=== PATIENT | female | born 1990 | race Caucasian/White ===

== ENCOUNTER 2019-06-07 06:40 | Inpatient (IN) | payer BC, SELFPAY ==
[2019-06-07] VITALS (115 sets, daily range): BP systolic 0–164; BP diastolic 0–89; PULSE 74–105; RESP 16–18; TEMP 36.5–37; O2SAT 92–100; BMI 31.8
[2019-06-07 07:58] LABS: Basophils % 0.1 %; Eosinophils # 0.1 10^3/uL (0.0-0.8); Eosinophils % 1.4 %; Hematocrit 39.8 % (37.0-47.0); Hemoglobin 12.9 g/dL (11.5-15.3); Lymphocytes # 2.4 10^3/uL (0.8-4.8); Lymphocytes % 30.3 %; Mean Corpuscular HGB Conc 32.4 g/dL (30.0-36.0); Mean Corpuscular Hemoglobin 26.3 pg (28.0-34.0); Mean Corpuscular Volume 81.1 fL (81-99); Mean Platelet Volume 8.8 fL (7.4-10.4); Monocytes # 0.6 10^3/uL (0.2-0.9); Monocytes % 7.1 %; Neutrophils # 4.8 10^3/uL (1.8-7.7); Neutrophils % 60.5 %; Nucleated Red Blood Cells % 0 %; Platelet Count 263 10^3/cmm (130-400); Red Blood Count 4.91 10^6/uL (4.1-5.3)
[2019-06-07] MEDS: oxytocin 30 UNIT/500 ML BAG IV (07:59)
[2019-06-07] MEDS: dextrose 5%-lactated ringers 1,000 ML 125 ML IV (08:00)
--- NOTE | 2019-06-07 08:11 | P.HP_ITS ---
Providers/Chief Complaint Admitting Physician: Yang Amador MD Primary Care Provider: Yang Amador MD Chief Complaint: Induction History of Present Illness Joleen Smith is a 29 year old at 41.0 weeks by LMP consistent with 11-week ultrasound. Her is complicated by prior oophorectomy for dermoid cyst. The patient presented to labor and delivery triage for a scheduled induction of labor for postdates. She currently denies any contractions, leakage of fluid, vaginal bleeding, chest pains, shortness of breath. She has had a mild cold that is starting to improve. She denies any active fevers or significant cough. PFSH Acute PFSH: Medical History (Updated 06/07/19 @ 08:14 by Yang Amador MD) Family history of hypertension Surgical History (Updated 06/07/19 @ 08:14 by Yang Amador MD) History of right salpingo-oophorectomy Family History (Updated 06/07/19 @ 08:14 by Yang Amador MD) Father Hypertension Vitals/I&O/Wt Last Vital Signs Pulse 84 06/07/19 08:08 BP 121/78 06/07/19 08:08 Physical Exam Narrative: EXAM NARRATIVE: General: Alert and oriented x3 Eyes: Pupils equal round and reactive to light and accommodation Mouth: Mucous membranes moist, pharynx non-erythematous Cardiac: Regular rate and rhythm without murmurs Lungs: Clear to auscultation bilaterally without wheezes, crackles or rhonchi Abdomen: Soft, non-tender, fundus consistent with gestational age, vertex presentation Extremities: Trace edema in the bilateral lower extremities Data : 06/07/19 07:40 A&P Additional A&P Information The patient is doing well at this time. heart tones are in the mid 140s with moderate variability and good accelerations. There is a category 1 heart tone tracing. The patient has some intermittent irritability, without regular contractions. Her initial exam is 3/70/-2/soft/anterior. We will start her on IV Pitocin for induction of labor. All questions were answered. Proceed with induction of labor secondary to postdates. Attestations Medical Necessity Statement*: The patient will be here for greater than 2 midnights due to routine intrapartum and management of labor and delivery. Coding Level of Care Code Acute Fruit Or Nut Crops Farm Manager for Austing Chantell
[2019-06-07] MEDS: lactated ringers 1,000 ML 999 ML IV ×2 (11:31→12:35)
--- NOTE | 2019-06-07 13:11 | P.ANES_ITS ---
Anesthesia Procedures Procedure/Date: 06/07/19 Epidural: Time Out Performed: Yes Consents Signed: Procedure Consent Consent: from patient, risks and benefits reviewed and patient agrees to proceed Lumbar Level: L3-L4 Epidural position: sitting Epidural procedure: sterile prep of area, 1% lidocaine to numb the area (5), 18 g needle, negative f or paresthesia passed, neg for paresthesia, test dose given, 1.5% xylocaine 1:200k epi (5), 0.2% Ropivacaine bolus ml (8), placed PCEA (5cc q10min x 3), no systemic response, sterile dressing applied, L.U.D. no apparent complications and 0.2% Ropiavacaine @ mls/hr (11) Additional Comments: patient previously seen in preop. Reviewed preop by Dr. Newsome and pt evaluated. No changes in health status. NPO since 0500. . epidural placed x 1 attempt and tolerated well. catheter 5cm in space. bolused over 7min and VSS throughout, last BP 138/58. Pain much improved.
--- NOTE | 2019-06-07 18:26 | P.PCNOB_ITS ---
Delivery Note: Date of delivery: June 07, 2019 Pre-delivery diagnoses: 1. Intrauterine at 41.0 weeks gestation 2. Prior oophorectomy for dermoid cyst Joleen Smith is a 29 year old G1 now P1 status post spontaneous vaginal delivery at 41.0 weeks by LMP consistent with 11-week ultrasound. Her was complicated by prior oophorectomy for dermoid cyst. Post-delivery diagnoses: 1. Intrauterine status post spontaneous vaginal delivery at 41.0 weeks gestation 2. Prior oophorectomy for dermoid cyst 3. Second-degree vaginal laceration with repair 4. Delivery of healthy infant female weighing 9 pounds 5 ounces with Apgars of 8 and 9 Procedure: Spontaneous vaginal delivery Op report anesthesia: Epidural Delivering Physician: Yang Amador MD Estimated blood loss (mL): 150 Findings: 1. Delivery of healthy infant female weighing 9 pounds 5 ounces with Apgars of 8 9 2. Second-degree midline perineal vaginal laceration with repair 3. Intact placenta with peripheral umbilical cord insertion site Pre-Delivery Course: The patient was brought in for induction of labor secondary to postdates on the morning of 06/07/2019. She was 3 cm dilated upon admission. She was started on IV Pitocin and made good change. The patient had spontaneous rupture of membranes at 11:15 AM. The fluid was noted to be clear. The patient continued to make change and received an epidural. This worked very well for her. The patient was complete at 1600 on 06/07/2019. Delivery: The patient began pushing at 1634 on 06/07/2019. The patient pushed well. The delivered in the OA position at 1740 on 06/07/2019. The left shoulder was the anterior shoulder and it delivered with downward pressure. The rest of the infant delivered without complication. There was no nuchal cord. There was terminal meconium. The infant's mouth and nose were bulb suctioned by myself. The infant had a weak cry upon delivery. The was placed on the mother's chest where the nurses were waiting to care for her. The cord was clamped by myself after approximately 1 minute. The cord was cut by the infant's father. The cord blood was drained and traction was placed on the cord. The placenta delivered at 1743 without complication. The placenta was noted to be intact with a peripheral insertion site of the umbilical cord. The uterus was massaged and noted to be firm and midline. The cervix was inspected and there were no lacerations noted. The vaginal wall was inspected and a se cond-degree vaginal laceration was noted in the midline perineal region. This extended near the anal sphincter but did not disrupt it. The laceration was repaired using 3-0 Vicryl in a running fashion. No lidocaine was necessary as epidural was given adequate anesthesia. There was a small abrasion in the right upper vaginal wall and the left lower vaginal wall that did not need repair. The rectum was inspected by myself and no sutures were noted in the rectum. The anal sphincter had poor tone in general that I feel was secondary to a strong epidural. We will certainly watch for any signs of anal sphincter weakness. Currently both the mother and are doing well. Coding Level of Care Code Acute Grocery Stock Clerk for Arleth Abdul
[2019-06-08 02:00] VITALS: BP 114/73; PULSE 64; RESP 16; TEMP 36.4
[2019-06-08 04:44] VITALS: BP 112/72
[2019-06-08 08:00] LABS: Hematocrit 34.4 % (37.0-47.0); Mean Corpuscular Hemoglobin 27.4 pg (28.0-34.0); Mean Corpuscular Volume 85.6 fL (81-99); Mean Platelet Volume 8.8 fL (7.4-10.4); Platelet Count 226 10^3/cmm (130-400); Red Blood Count 4.02 10^6/uL (4.1-5.3); White Blood Count 11.3 10^3/uL (4.0-10.0)
--- NOTE | 2019-06-08 08:43 | P.PN_ITS ---
Subjective Subjective: Interval history: The patient is doing well today. Her bleeding is decreasing well. Her pain is under good control. She is ambulating, voiding, passing gas and tolerating food by mouth. She is able to control flatulence. Vitals/I&O/Wt Last Vital Signs Temp 97.6 F 06/08/19 02:00 Pulse 64 06/08/19 02:00 Resp 16 06/08/19 02:00 BP 112/72 06/08/19 04:44 Pulse Ox 98 06/07/19 13:35 06/07/19 06/08/19 06/08/19 22:59 06:59 14:59 Intake Total 214.8 / 1435.233 250 / 1685.233 Output Total 200 / 200 400 / 600 650 / 650 Balance 14.8 / 1235.233 -150 / 1085.233 -650 / -650 Weight last 48 hrs Weight 191 lb Physical Exam Narrative: EXAM NARRATIVE: General: Alert and oriented x3 Cardiac: Regular rate and rhythm without murmurs Lungs: Clear to auscultation bilaterally without wheezes, crackles or rhonchi Abdomen: Soft, mild tenderness, fundus is firm and below the umbilicus. Extremities: Trace edema in the bilateral lower extremities Urinary Catheter Management^: Latif: Cath Placed During This Visit: yes, but has since been removed by the nurse Reason for Continuing Indwelling Catheter: Not indwelling catheter Urinary Catheter Date of Insertion: 06/07/19 Urinary Catheter Time of Insertion: 13:30 Date Urinary Catheter Removed: 06/07/19 Time Urinary Catheter Discontinued: 16:30 Data : 06/08/19 07:43 A&P Additional A&P Information The patient is doing well at this time. She is showing no signs of complications. We will continue with routine care. Plan for discharge home tomorrow if she continues to do well. Attestations Medical Necessity Statement*: The patient continues need inpatient care as she recovers after a vaginal delivery. Plan for discharge home tomorrow. Coding Level of Care Code Acute Investigation Specialist for Arleth Abdul
[2019-06-08] MEDS: ferrous sulfate EC 325 mg Tablet PO (09:11)
[2019-06-08] MEDS: prenatal vitamin Capsule 1 CAP PO (09:11)
[2019-06-08] MEDS: docusate sodium 100 mg Capsule PO ×2 (09:13→17:12)
[2019-06-08 09:30] VITALS: BP 110/73; PULSE 78; RESP 16; TEMP 36.3; O2SAT 98
[2019-06-08 16:23] VITALS: BP 111/75; PULSE 79; RESP 16; TEMP 36.3; O2SAT 96
[2019-06-09 06:45] VITALS: BP 114/70; PULSE 62; RESP 18; TEMP 36.8
--- NOTE | 2019-06-09 08:28 | P.DS_ITS ---
Discharge Providers Date of Admission: 06/07/19 06:40 Date of Discharge: June 09, 2019 Attending Provider at Admission: Yang Amador MD Attending Provider at Discharge: Yang Amador MD Primary Care Provider: Yang Amador MD Diagnoses at Discharge Discharge Diagnosis (1) Intrauterine : Status: Acute Reason for Visit Reason for Visit: Reason For Visit: Induction Hospital Course Hospital Course: The patient was brought in for induction of labor secondary to postdates on the morning of 06/07/2019. She was 3 cm dilated upon admission. She was started on IV Pitocin and made good change. The patient had spontaneous rupture of membranes at 11:15 AM. The fluid was noted to be clear. The patient continued to make change and received an epidural. This worked very well for her. The patient was complete at 1600 on 06/07/2019. Delivery: The patient began pushing at 1634 on 06/07/2019. The patient pushed well. The infant delivered in the OA position at 1740 on 06/07/2019. The left shoulder was the anterior shoulder and it delivered with downward pressure. The rest of the delivered without complication. There was no nuchal cord. There was terminal meconium. The 's mouth and nose were bulb suctioned by myself. The infant had a weak cry upon delivery. The was placed on the mother's chest where the nurses were waiting to care for her. The cord was clamped by myself after approximately 1 minute. The cord was cut by the 's father. The cord blood was drained and traction was placed on the cord. The placenta delivered at 1743 without complication. The placenta was noted to be intact with a peripheral insertion site of the umbilical cord. The uterus was massaged and noted to be firm and midline. The cervix was inspected and there were no lacerations noted. The vaginal wall was inspected and a second-degree vaginal laceration was noted in the midline perineal region. This extended near the anal sphincter but did not disrupt it. The laceration was repaired using 3-0 Vicryl in a running fashion. No lidocaine was necessary as epidural was given adequate anesthesia. There was a small abrasion in the right upper vaginal wall and the left lower vaginal wall that did not need repair. The rectum was inspected by myself and no sutures were noted in the rectum. The anal sphincter had poor tone in general that I feel was secondary to a strong epidural. We will certainly watch for any signs of anal sphincter weakness. Currently both the mother and infant are doing well. course: The patient is done well without any signs of complications. Her bleeding is decreasing well. She is ambulating, voiding, passing gas and tolerating food by mouth. The patient is able to control flatulence well. The patient's pain is under good control with current medications. At this time the patient is doing well and wishes to be discharged home. All questions were answered. Routine discharge instructions were given. Physical Exam Narrative: EXAM NARRATIVE: General: Alert and oriented x3 Cardiac: Regular rate and rhythm without murmurs Lungs: Clear to auscultation bilaterally without wheezes, crackles or rhonchi Abdomen: Soft, mild tenderness, fundus is firm and below the umbilicus. Extremities: Trace edema in the bilateral lower extremities Urinary Catheter Management^: Latif: Cath Placed During This Visit: yes, but has since been removed by the nurse Reason for Continuing Indwelling Catheter: Not indwelling catheter Urinary Catheter Date of Insertion: 06/07/19 Urinary Catheter Time of Insertion: 13:30 Date Urinary Catheter Removed: 06/07/19 Time Urinary Catheter Discontinued: 16:30 Discharge Data Vitals: Last Vital Signs Temp 98.2 F 06/09/19 06:45 Pulse 62 06/09/19 06:45 Resp 18 06/09/19 06:45 BP 114/70 06/09/19 06:45 Pulse Ox 96 06/08/19 16:23 Discharge Plan Discharge Patient Disposition: Home, Self-Care Condition: Good Prescriptions: New hydrocodone-acetaminophen 5-325 mg Tablet 1 tab PO Q6H PRN (Reason: Moderate To Severe Pain) Qty: 15 RF: 0 ibuprofen 800 mg Tablet 800 mg PO TID Qty: 60 RF: 0 Continued 28-800 mg-mcg Tablet 1 tab PO DAILY RF: 0 Iron (ferrous sulfate) 325 mg (65 mg iron) Tablet 325 mg PO DAILY RF: 0 Discharge Orders: Discharge Order (Routine); Ordered 06/09/19 Ordered By: Yang Amador Referrals: Yang Amador MD [Primary Care Provider] - 6 Weeks Discharge Diet: Regular Discharge Activity: Increase activity as tolerated Activity Restrictions/Additional Instructions: If you have any concerns prior to your appointment, please call [facility] for sooner appointment. Nothing per vagina for 6 weeks. Discharge Attestations Time Spent in Discharge Care*: less than 30 min Quality Metrics Clinical Quality Measures During this hospital stay, did patient experience: None Coding Level of Care Code Acute Windows And Doors Installer for [employer] Diagnoses Intrauterine Z34.90
== END 2019-06-09 10:48 | disposition home or self-care (01) | DRG 807 ==
PROVIDERS: Admitting Provider Family Medicine; Family Provider Family Medicine; PCP Family Medicine; Visit Provider Family Medicine
DX: O48.0 Post-term pregnancy (principal); Z37.0 Single live birth; Z3A.41 41 weeks gestation of pregnancy; O70.1 Second degree perineal laceration during delivery
CPT/HCPCS: 12345; 36415; 51702; 59409; 85025; 85027; J2795

== ENCOUNTER 2020-10-18 11:01 | Outpatient (CLI) | payer OTHER, SELFPAY ==
--- NOTE | 2020-10-18 11:11 | US_ITS ---
WS: [id number] EARLY OBSTETRICAL ULTRASOUND (<14 WEEKS). HISTORY: SUPERVISION OF NORMAL ,MULTIPAROUS COMPARISON: None available. Single intrauterine gestational sac is identified. Cardiac activity at 171 BPM. [place]-rump length ophelia sures 6.0 cm which corresponds to a gestation of 12w3d. Normal-appearing yolk sac and amnion demonstr ated. No subchorionic hemorrhage. No free fluid. Normal size ovaries with no mass. Cervix is closed. No free fluid. US/US OB <= 14 weeks fetus [id number] IMPRESSION: 1. Single intrauterine gestation of 12 weeks 3 days with an EDC of 04/29/2021. 2. Normal cardiac activity.
== END 2020-10-18 11:02 | disposition home or self-care (01) ==
LOC: US 11:06
PROVIDERS: PCP Family Medicine; Visit Provider Family Medicine
DX: Z34.81 Encounter for supervision of other normal pregnancy, first trimester; Z3A.12 12 weeks gestation of pregnancy
CPT/HCPCS: 76801

== ENCOUNTER 2020-12-15 08:07 | Outpatient (CLI) | payer OTHER, SELFPAY ==
--- NOTE | 2020-12-15 08:12 | US_ITS ---
WS: [id number] OBSTETRICAL ULTRASOUND COMPLETE HISTORY: SUPERVISION NORMAL COMPARISON: 10/18/2020 Single intrauterine gestation in Cephalic presentation. Cervix is Closed and normal length. Cervical length is 4.2 cm. Normal amount of amniotic fluid surrounds the fetus. Placenta: Posterior, no previa or abruption. Placenta grade 0 Heart: 167 BPM. Four chambers are identified. Also tracts are not adequately evaluated. Anatomy: Intracranial structures and spine are normal. kidneys, stomach and urinary bladd er are unremarkable. Abdominal wall, three-vessel cord and cord insertion site are normal. 4 extremities are present. profile: Unremarkable. Gender: Male. measurements: BPD = 4.7 cm = 20w1d HC = 17.9 cm = 20w3d AC = 15.2 cm = 20w3d FL = 3.5 cm = 20w6d EFW: 364 g. Biometry is internally concordant. AGA by ultrasound: 20w3d JUSTIN by ultrasound: 05/01/2021 US/US OB >= 14 weeks fetus [id number] IMPRESSION: 1. Single intrauterine gestation of 20w3d with an JUSTIN of 05/01/2021. Appropria te growth since the first trimester ultrasound. 2. Unremarkable screening survey of anatomy.
== END 2020-12-15 08:08 | disposition home or self-care (01) ==
PROVIDERS: PCP Family Medicine; Visit Provider Family Medicine
DX: Z34.82 Encounter for supervision of other normal pregnancy, second trimester; Z3A.20 20 weeks gestation of pregnancy
CPT/HCPCS: 76805

== ENCOUNTER 2021-04-30 07:20 | Outpatient (CLI) | payer OTHER, SELFPAY ==
[2021-04-30 07:20] VITALS: BMI 31.9
--- NOTE | 2021-04-30 09:09 | PM.HP ---
Providers/Chief Complaint Primary Care Provider: Yang Amador MD Chief Complaint: induction History of Present Illness Joleen Smith is a 31 year old G2, P1 40.1 weeks gestation by 12-week ultrasound inconsistent with LMP. Her is complicated by prior oophorectomy for dermoid cyst, history of cold sores, mild anemia, history of infant weighing 9 pounds 5 ounces. The patient presents to labor and delivery triage for a scheduled induction of labor secondary to postdates. The patient currently feels well. She denies any chest pains, shortness of breath, nausea, vomiting, diarrhea, constipation, fevers, leakage of fluid, vaginal bleeding. Medications/Allergies Home Medications Medication Instructions Recorded Confirmed Last Taken Type Iron (ferrous sulfate) 325 mg PO DAILY 06/07/19 06/07/19 06/06/19 09:30 History 1 tab PO DAILY 06/07/19 06/07/19 06/06/19 09:30 History hydrocodone-acetaminophen 1 tab PO Q6H PRN #15 tab 06/09/19 Unknown Rx ibuprofen 800 mg PO TID #60 tab 06/09/19 Unknown Rx Allergies Allergy/AdvReac Type Severity Reaction Status Date / Time No Known Allergies Allergy Verified 06/07/19 10:36 PFSH Acute PFSH: Medical History (Updated 04/30/21 @ 09:12 by Yang Amador MD) Family history of hypertension Surgical History (Updated 04/30/21 @ 09:13 by Yang Amador MD) History of right oophorectomy Dermoid tumor History of right salpingo-oophorectomy Family History (Updated 06/07/19 @ 08:14 by Yang Amador MD) Father Hypertension Social History (Updated 04/30/21 @ 09:14 by Yang Amador MD) Smoking and tobacco status: never smoked Alcohol intake: never Substance/Drug Use: never Marital status: Number of children: 1 Female Reproductive History: Date of last menstrual period: 08/24/18 Physical Exam Narrative: EXAM NARRATIVE: General: Alert and oriented x3 Eyes: Pupils equal round and reactive to light and accommodation Mouth: Mucous membranes moist, pharynx non-erythematous Cardiac: Regular rate and rhythm without murmurs Lungs: Clear to auscultation bilaterally without wheezes, crackles or rhonchi Abdomen: Soft, non-tender, fundus consistent with gestational age Extremities: Trace edema in the bilateral lower extremities A&P Assessment and plan (1) Intrauterine : Status: Acute Additional A&P Information The patient is doing well at this time. heart tones show a category 1 tracing. The patient is not having any consistent contractions. We will plan to start IV Pitocin for induction of labor as she is 3 cm dilated. She is GBS negative. She is COVID-negative. All questions were answered. The patient is in agreement with the current plan of care. Attestations Medical Necessity Statement*: The patient will be here for greater than 2 midnights due to routine intrapartum and management of labor and delivery. Coding Level of Care Code Acute Cash Management Specialist for Arleth Abdul Diagnoses Intrauterine Z34.90
== END 2021-04-30 15:55 | disposition home or self-care (01) ==
LOC: OPOB 07:26 → OBGYN 07:27
PROVIDERS: PCP Family Medicine; Visit Provider Family Medicine
DX: O61.9 Failed induction of labor, unspecified (principal); Z3A.00 Weeks of gestation of pregnancy not specified
CPT/HCPCS: 59025; 99211

== ENCOUNTER 2021-05-01 16:12 | Inpatient (IN) | payer OTHER, SELFPAY ==
[2021-05-01] VITALS (43 sets, daily range): BP systolic 90–123; BP diastolic 53–73; PULSE 75–133; RESP 17; TEMP 36.7; O2SAT 93–100; BMI 31.9
[2021-05-01] MEDS: dextrose 5%-lactated ringers 1,000 ML 125 ML IV (17:21)
[2021-05-01] MEDS: oxytocin 30 UNIT/500 ML BAG 4 UNIT IV (17:22)
[2021-05-01 17:37] LABS: Basophils % 0.1 %; Eosinophils % 0.1 %; Hematocrit 40.2 % (37.0-47.0); Hemoglobin 13.2 g/dL (11.5-15.3); Lymphocytes # 0.5 10^3/uL (0.8-4.8); Lymphocytes % 7.4 %; Mean Corpuscular HGB Conc 32.8 g/dL (30.0-36.0); Mean Corpuscular Hemoglobin 28.1 pg (28.0-34.0); Mean Corpuscular Volume 85.7 fl (81-99); Mean Platelet Volume 9.4 fL (7.4-10.4); Monocytes # 0.7 10^3/uL (0.2-0.9); Monocytes % 10.2 %; Neutrophils # 5.51 10^3/uL (1.8-7.7); Neutrophils % 81.5 %; Nucleated Red Blood Cells % 0 %; Platelet Count 211 10^3/cmm (130-400); Red Blood Count 4.69 10^6/uL (4.1-5.3); Red Cell Distribution Width 12.7 % (12.1-15.1); White Blood Count 6.8 10^3/uL (4.0-10.0)
[2021-05-01] MEDS: lactated ringers 1,000 ML 999 ML IV (19:25)
--- NOTE | 2021-05-01 20:22 | ANES.PREANE2 ---
Pre-Anesthetic Assessment Pre-Anesthetic Assessment: Height/Weight: Height 1.63 m Weight 84.368 kg Temp Pulse Resp BP 98.1 F 105 H 17 105/55 05/01/21 16:17 05/01/21 20:06 05/01/21 16:43 05/01/21 20:06 Preop Diagnosis: Proposed Procedure: epidural Familial anesthetic complications: none Was Beta Nazario taken within 24 hours: N/A Was Clonidine taken within 24 hours: N/A Social: Social History: No alcohol and No tobacco Exam: Pre-Anes Outpt Exam: alert, oriented x 3, clear to auscultation bilaterally and regular rate & rhythm Airway: Submandibular: WNL Cervical ROM: WNL MP: 2 Dentition: Full Pulmonary: Pulmonary: None reported CV/HEM: CV/HEM: None reported : : None reported Hepatic: Hepatic: None reported GI: GI: GERD Metabolic: Metabolic: None reported Musc/skel: Musc/skel: None reported Neuropsych: Neuropsych: None reported Anesthetic Plan: ASA status: 2 Anesthesia: Regional (specify below) Risk of > 500 ml blood loss (7ml/kg in children): No Medications/Allergies Current Medications: Current Medications Generic Name Dose Route Start Last Admin Trade Name Freq PRN Reason Stop Dose Admin Oxytocin 30 unit in 500 ml s @ 4 mls/hr 05/01/21 16:45 05/01/21 18:00 Pitocin IV 8 milliunit/min .Q24H GLENIS 8 mls/hr Titration Protocol 4 MILLIUNIT/MIN Dextrose/Lactated Ringer's 1,000 mls @ 125 m ls/hr 05/01/21 16:45 05/01/21 17:21 Dextrose 5%-Lact ated Ringers IV 125 mls/hr .Q8H GLENIS Administration Lactated Ringer's 1,000 mls @ 999 m ls/hr 05/01/21 19:18 05/01/21 19:25 Lactated Ringers IV 999 mls/hr .Q1H1M PRN Administration See label comment s PFSH Anesthesia PFSH: Medical History (Updated 04/30/21 @ 09:12 by Yang Amador MD) Family history of hypertension Surgical History (Updated 04/30/21 @ 09:13 by Yang Amador MD) History of right oophorectomy Dermoid tumor History of right salpingo-oophorectomy Family History (Updated 06/07/19 @ 08:14 by Yang Amador MD) Father Hypertension Social History (Updated 04/30/21 @ 09:14 by Yang Amador MD) Smoking and tobacco status: never smoked Alcohol intake: never Marital status: Number of children: 1 Female Reproductive History: Date of last menstrual period: 08/24/18 : 2 Data Anesthesia CBC & Chem 7: 05/01/21 17:00 Other Labs: Laboratory Results - last 48 hr 05/01/21 17:00 WBC 6.8 RBC 4.69 Hgb 13.2 Hct 40.2 MCV 85.7 MCH 28.1 MCHC 32.8 RDW 12.7 Plt Count 211 MPV 9.4 Neut % (Auto) 81.5 Lymph % (Auto) 7.4 [place] % (Auto) 10.2 Eos % (Auto) 0.1 Baso % (Auto) 0.1 Neut # (Auto) 5.51 Lymph # (Auto) 0.5 L [place] # (Auto) 0.7 Eos # (Auto) 0.0 Baso # (Auto) 0.0 Nucleated RBC % (auto) 0 Nucleated RBCs # 0.0 Cardiac Studies: No Data to Display
--- NOTE | 2021-05-01 20:56 | ANES.PROC ---
Anesthesia Procedures Procedure/Date: 05/01/21 epidural Procedure Narrative: epidural complete, bolus given, epidural pump initiated with BULK TRUCK DRIVER education given, vitals taken during procedure using OBIX system and satisfactory throughout, patient admits to decrease pain, report of procedure to OB RN Epidural: Time Out Performed: Yes Consents Signed: Procedure Consent Consent: requested by attending/covering physician, from patient, risks and benefits reviewed and patient agrees to proceed Lumbar Level: L3-L4 Epidural position: sitting Epidural procedure: sterile prep of area, 1% lidocaine to numb the area (3 mL), 18 g needle, negative for paresthesia passed, neg for paresthesia, test dose given, 1.5% xylocaine 1:200k epi (5 mL), 0.2% Ropivacaine bolus ml (5 mL), placed PCEA, no systemic response, sterile dressing applied, L.U.D. no apparent complications and 0.2% Ropiavacaine @ mls/hr (13 mL/hr)
--- NOTE | 2021-05-01 21:00 | P.HP_ITS ---
Providers/Chief Complaint Admitting Physician: Yang Amador MD Primary Care Provider: Yang Amador MD Chief Complaint: induction History of Present Illness Joleen Smith is a 31 year old at 40.2 weeks gestation by 12-week ultrasound inconsistent with LMP. Her is complicated by prior oophorectomy for dermoid cyst, history of cold sores, mild anemia, history of weighing 9 pounds 5 ounces. The patient presents to labor and delivery triage for a scheduled induction of labor secondary to postdates. She had been scheduled for 04/30/2021, however due to patient volume, her induction was delayed. Instead of starting the induction in the evening of 04/30/2021, she decided to wait until 04/30/2021 for induction. The patient currently feels well. She denies any chest pains, shortness of breath, nausea, vomiting, diarrhea, constipation, fevers, leakage of fluid, vaginal bleeding. Medications/Allergies Home Medications Medication Instructions Recorded Confirmed Last Taken Type 1 tab PO DAILY 06/07/19 05/01/21 06/06/19 09:30 History Allergies Allergy/AdvReac Type Severity Reaction Status Date / Time No Known Allergies Allergy Verified 06/07/19 10:36 PFSH Acute PFSH: Medical History Family history of hypertension Surgical History History of right oophorectomy Dermoid tumor History of right salpingo-oophorectomy Family History (Updated 06/07/19 @ 08:14 by Yang Amador MD) Father Hypertension Social History Smoking and tobacco status: never smoked Alcohol intake: never Marital status: Number of children: 1 Female Reproductive History: Date of last menstrual period: 08/24/18 Grav julianna: 2 Vitals/I&O/Wt Last Vital Signs Temp 98.1 F 05/01/21 16:17 Pulse 118 H 05/01/21 20:57 Resp 17 05/01/21 16:43 BP 102/57 05/01/21 20:57 Pulse Ox 100 05/01/21 20:57 05/01/21 05/01/21 05/01/21 06:59 14:59 22:59 Intake Total 2.533 / 2.533 Balance 2.533 / 2.533 Weight last 48 hrs Weight 186 lb Physical Exam Narrative: EXAM NARRATIVE: General: Alert and oriented x3 Eyes: Pupils equal round and reactive to light and accommodation Mouth: Mucous membranes moist, pharynx non-erythematous Cardiac: Regular rate and rhythm without murmurs Lungs: Clear to auscultation bilaterally without wheezes, crackles or rhonchi Abdomen: Soft, non-tender, fundus consistent with gestational age Extremities: Trace edema in the bilateral lower extremities Data : 05/01/21 17:00 A&P Additional A&P Information Intrauterine : Status: Acute Additional A&P Information The patient is doing well at this time. heart tones show a category 1 tracing. The patient is not having any consistent contractions. We will plan to start IV Pitocin for induction of labor as she is 3 cm dilated. She is GBS negative. She is COVID-negative. All questions were answered. The patient is in agreement with the current plan of care. Attestations Medical Necessity Statement*: The patient will be here for greater than 2 midnights due to routine intrapartum and management of labor and delivery. Coding Level of Care Code Acute Solvent Mixer for Arleth Abdul
--- NOTE | 2021-05-01 22:17 | P.PCNOB_ITS ---
Delivery Note: Date of delivery: May 01, 2021 Pre-delivery diagnoses: 1. Intrauterine at 40.2 weeks gestation 2. Mild anemia 3. History of infant weighing 9 pounds 5 ounces Post-delivery diagnoses: 1. Intrauterine status post spontaneous vaginal delivery at 40.2 weeks gestation 2. Mild anemia 3. Delivery of healthy infant male weighing 8 pounds 5 ounces with Apgars of 9 and 9 Procedure: Spontaneous vaginal delivery Op report anesthesia: Epidural Delivering Physician: Yang Amador MD Estimated blood loss (mL): 100 Findings: Joleen Smith is a 31 year old G2 now P2 status post spontaneous vaginal delivery at 40.2 weeks gestation by 12-week ultrasound inconsistent with LMP. Her was complicated by prior oophorectomy for dermoid cyst, history of cold sores, mild anemia, history of infant weighing 9 pounds 5 ounces. Pre-Delivery Course: The patient presented to labor and delivery for a scheduled induction on the afternoon of 05/01/2021. IV Pitocin was started at approximately 5:30 PM on 05/01/2021. The patient was 3 cm dilated upon admission. The patient began having regular contractions and made steady contreras ge. She received a laboring epidural that provided good anesthesia. The patient was noted to be 7 to 8 cm dilation with a bulging bag of fluid, so AROM was performed at 2111 on 05/01/2021. Meconium stained fluid was noted. The patient made quick change and was complete by 2129 on 05/01/2021. Delivery: The patient began pushing at 2137 on 05/01/2021. The patient pushed well and the delivered in the OA position at 2139 on 05/01/2021. The right shoulder was the anterior shoulder and it delivered with downward pressure. The left shoulder delivered with upward pressure. The rest of the delivered with ease. There was no nuchal cord. The was crying immediately upon delivery. The infant's mouth and nose were bulb suctioned by myself. The infant was placed on the mother's chest where the nurses were awaiting to care for him. The cord was clamped by myself after approximately 1 minute and cut by the 's father. Cord blood was obtained. The cord was then drained of blood and traction was placed on the umbilical cord. The uterus was massaged and the placenta delivered at 2143 on 05/01/2021 without complica tion. The placenta was noted to be intact with a central umbilical cord insertion site. The uterus was massaged and the patient's bleeding decreased quickly. The cervix was inspected and no lacerations were noted. The vaginal wall was inspected and a second-degree perineal laceration was noted. This did not extend to the rectum. Adequate anesthesia was noted with the patient's epidural. 3-0 Vicryl was used to repair the laceration in a running fashion. A rectal exam was done and no sutures were noted in the rectum. The patient tolerated the procedure well. Currently both the mother and infant are doing well. Coding Level of Care Code Acute Commercial Collections Specialist for Arleth Abdul
[2021-05-02] VITALS (10 sets, daily range): BP systolic 96–116; BP diastolic 57–71; PULSE 65–85; RESP 16; TEMP 36.7–37.1; O2SAT 95–98
--- NOTE | 2021-05-02 07:18 | ANE.PACU2 ---
Inpatient post-anesthesia follow up: Airway intact: Yes Vital signs: Temperature 98.5 F Pulse Rate 76 Respiratory Rate 17 Blood Pressure 103/60 Pulse Oximetry 98 Oxygen Delivery Me thod Room Air Oxygen Flow Rate Fraction of Inspir ed Oxygen Hydration adequate: Yes Nausea and vomiting: No Pain level: 2 Mental status: Baseline
[2021-05-02 10:31] LABS: Hemoglobin 11.1 g/dL (11.5-15.3); Mean Corpuscular HGB Conc 32.6 g/dL (30.0-36.0); Mean Corpuscular Hemoglobin 28.1 pg (28.0-34.0); Mean Corpuscular Volume 86.1 fl (81-99); Mean Platelet Volume 8.9 fL (7.4-10.4); Platelet Count 184 10^3/cmm (130-400); Red Blood Count 3.95 10^6/uL (4.1-5.3); Red Cell Distribution Width 12.7 % (12.1-15.1); White Blood Count 6.2 10^3/uL (4.0-10.0)
[2021-05-02] MEDS: docusate sodium 100 mg Capsule PO ×2 (10:46→17:40)
[2021-05-02] MEDS: ibuprofen 800 mg tablet PO ×3 (10:47→21:08)
[2021-05-02] MEDS: prenatal vitamin Capsule 1 CAP PO (10:47)
--- NOTE | 2021-05-02 15:16 | P.PN_ITS ---
Subjective Subjective: Interval history: The patient is doing well today. She is ambulating, voiding, passing gas and tolerating food by mouth. Her bleeding is decreasing well. Her pain is well controlled. Vitals/I&O/Wt Last Vital Signs Temp 98.5 F 05/02/21 05:48 Pulse 76 05/02/21 05:48 Resp 17 05/01/21 16:43 BP 103/60 05/02/21 05:48 Pulse Ox 98 05/01/21 21:37 05/02/21 05/02/21 05/02/21 06:59 14:59 22:59 Output Total 600 / 600 Balance -600 / 402.533 Weight last 48 hrs Weight 186 lb Physical Exam Narrative: EXAM NARRATIVE: General: Alert and oriented x3 Cardiac: Regular rate and rhythm without murmurs Lungs: Clear to auscultation bilaterally without wheezes, crackles or rhonchi Abdomen: Soft, mild tenderness over uterus. The uterus is firm and 2 cm below the umbilicus. Extremities: Trace edema in the bilateral lower extremities Data : 05/02/21 10:15 A&P Additional A&P Information The patient is doing well at this time. We will continue with routine care. Plan for discharge home tomorrow. Routine discharge instructions were discussed. All questions were answered. Attestations Medical Necessity Statement*: The patient will be here for greater than 2 midnights due to routine intrapartum and care of labor and delivery. Coding Level of Care Code Acute Environmental Health Specialist for Arleth Abdul
[2021-05-03 04:00] VITALS: BP 107/72; PULSE 68; TEMP 36.6; O2SAT 97
--- NOTE | 2021-05-03 08:48 | P.DS_ITS ---
Discharge Providers Date of Admission: 05/01/21 16:12 Date of Discharge: May 03, 2021 Attending Provider at Admission: Yang Amador MD Attending Provider at Discharge: Yang Amador MD Primary Care Provider: Yang Amador MD Diagnoses at Discharge Other Information Additional DC diagnoses/information: 1.? Intrauterine status post s pontaneous vaginal delivery at 40.2 weeks gestation 2.? Mild anemia 3.? Delivery of healthy infant male tab ajng 8 pounds 5 ounces with Apgars of 9 and 9? Procedure: Spontaneous vaginal delivery? Op report anesthesia: Epidural? Delivering Physician: Yang Amador MD? Estimated blood loss (mL): 100? Findings: Joleen Smith is a 31 year old G2 now P2 status post spontaneous vaginal delivery at 40.2 weeks gestation by 12-week ultrasound inconsistent with LMP.? Her was complicated by prior oophorectomy for dermoid cyst, history of cold sores, mild anemia, history of weighing 9 pounds 5 ounces. ? Pre-Delivery Course:?? Delivery:?? Reason for Visit Reason for Visit: induction Hospital Course Hospital Course The patient presented to labor and delivery for a scheduled induction on the afternoon of 05/01/2021.? IV Pitocin was started at approximately 5:30 PM on 05/01/2021.? The patient was 3 cm dilated upon admission.? The patient began having regular contractions and made steady change.? She received a laboring epidural that provided good anesthesia.? The patient was noted to be 7 to 8 cm dilation with a bulging bag of fluid, so AROM was performed at 2111 on 05/01/2021.? Meconium stained fluid was noted.? The patient made quick change and was complete by 2129 on 05/01/2021. Delivery:?? The patient began pushing at 2137 on 05/01/2021.? The patient pushed well and the infant delivered in the OA position at 2139 on 05/01/2021.? The right shoulder was the anterior shoulder and it delivered with downward pressure.? The left shoulder delivered with upward pressure.? The rest of the infant delivered with ease.? There was no nuchal cord.? The was crying immediately upon delivery.? The infant's mouth and nose were bulb suctioned by myself.? The was placed on the mother's chest where the nurses were awaiting to care for him.? The cord was clamped by myself after approximately 1 minute and cut by the infant's father.? Cord blood was obtained.? The cord was then drained of blood and traction was placed on the umbilical cord.? The uterus was massaged and the placenta delivered at 2144 on 05/01/2021 without complication.? The placenta was noted to be intact with a central umbilical cord insertion site.? The uterus was massaged and the patient's bleeding decreased quickly.? The cervix was inspected and no lacerations were noted.? The vaginal wall was inspected and a second-degree perineal laceration was noted.? This did not extend to the rectum.? Adequate anesthesia was noted with the patient's epi dural.? 3-0 Vicryl was used to repair the laceration in a running fashion.? A rectal exam was done and no sutures were noted in the rectum.? The patient tolerated the procedure well.? Currently both the mother and infant are doing well. course: The patient has done well without any complications. Her bleeding is decreasing well. She is ambulating, voiding, passing gas and tolerating food by mouth. Routine discharge instructions were discussed. The patient is in agreement with discharge home. Physical Exam Narrative: EXAM NARRATIVE: General: Alert and oriented x3 Cardiac: Regular rate and rhythm without murmurs Lungs: Clear to auscultation bilaterally without wheezes, crackles or rhonchi Abdomen: Soft, mild tenderness over uterus. The uterus is firm and 2 cm below the umbilicus. Extremities: Trace edema in the bilateral lower extremities Discharge Data Data Completed and Pending Labs from last 24 hours 05/02/21 10:15 WBC 6.2 RBC 3.95 L Hgb 11.1 L Hct 34.0 L MCV 86.1 MCH 28.1 MCHC 32.6 RDW 12.7 Plt Count 184 MPV 8.9 Vitals Last Vital Signs Temp 97.8 F 05/03/21 04:00 Pulse 68 05/03/21 04:00 Resp 16 05/02/21 22:23 BP 107/72 05/03/21 04:00 Pulse Ox 97 05/03/21 04:00 Discharge Plan Discharge Patient Disposition: Home Condition: Good Prescriptions: New ibuprofen 800 mg Tablet 800 mg PO TID Qty: 30 0RF ferrous sulfate 325 mg (65 mg iron) tablet 325 mg PO DAILY Qty: 30 0RF Continued 28-800 mg-mcg Tablet 1 tab PO DAILY 0RF Discharge Orders: Discharge Order (Routine); Ordered 05/03/21 Ordered By: Yang Amador Referrals: Yang Amador MD [Primary Care Provider] - 06/14/21 9:00 am Discharge Diet: Regular Discharge Activity: Increase activity as tolerated Patient Instructions: Depression (DC), Bleeding (DC), Preeclampsia and Eclampsia After Delivery (GEN), Vaginal Delivery (DC), OB Discharge Report, OB Food/Drug Interaction Guide, Opioid Safety, OB Home Care, OB Proud Parent Packet Activity Restrictions/Additional Instructions: Nothing per vagina for 6 weeks. I would recommend showers over bathing for the first 6 weeks. Discharge Attestations Time Spent in Discharge Care*: greater than 30 min Quality Metrics Clinical Quality Measures During this hospital stay, did patient experience: None Coding Level of Care Code Acute Chg FW DC note
[2021-05-03 08:50] VITALS: BP 112/77; PULSE 76; RESP 18; TEMP 36.5
[2021-05-03] MEDS: prenatal vitamin Capsule 1 CAP PO (08:53)
[2021-05-03] MEDS: ibuprofen 800 mg tablet PO (08:53)
[2021-05-03] MEDS: docusate sodium 100 mg Capsule PO (08:54)
[2021-05-03 11:10] VITALS: BP 112/77; PULSE 76; RESP 18; TEMP 36.5
== END 2021-05-03 10:43 | disposition home or self-care (01) | DRG 807 ==
LOC: OPOB 16:12 → OBGYN 16:12
PROVIDERS: Admitting Provider Family Medicine; PCP Family Medicine; Visit Provider Family Medicine
DX: O99.02 Anemia complicating childbirth (principal); Z37.0 Single live birth; O48.0 Post-term pregnancy; Z3A.40 40 weeks gestation of pregnancy; O70.1 Second degree perineal laceration during delivery; Z87.59 Personal history of other complications of pregnancy, childbirth and the puerperium; Z90.721 Acquired absence of ovaries, unilateral; O77.0 Labor and delivery complicated by meconium in amniotic fluid; D64.9 Anemia, unspecified
CPT/HCPCS: 36415; 59025; 59409; 85025; 85027; J2795

== ENCOUNTER → 2021-10-03 15:28 | Outpatient (BNVA) | payer OTHER, SELFPAY | PROVIDERS: PCP Family Medicine; Visit Provider Podiatrist Foot Surgery | DX: B35.1 Tinea unguium (principal) | CPT/HCPCS: 80053 ==

== ENCOUNTER 2022-06-19 10:49 | Outpatient (CLI) | payer OTHER, SELFPAY ==
--- NOTE | 2022-06-19 12:45 | US_ITS ---
WS: [id number] TRANSABDOMINAL PELVIC AND TRANSVAGINAL PELVIC ULTRASOUND HISTORY: Pelvic pain bilateral COMPARISON: 10/02/2015 Uterus: 8.2 cm x 6.3 cm x 4.7 cm. Normal size anteverted uterus. No fibroid or mass. Endometrium: 1.5 cm. Mild heterogeneity within the endometrium. No mass or increased vascularity. Sli ght hypoechoic region in the central endometrium is probably retained products of the menses. Right ovary: Ovary is not identified. No adnexal mass. Left ovary: 3.5 cm x 2.4 cm x 3.0 cm. Normal size ovary. Free fluid: Small amount of free fluid in the pelvis. US/US pelv w/transvag [id number] IMPRESSION: 1. RIGHT ovary is not identified. 2. Normal LEFT ovary. 3. Small amount of free fluid. 4. Minimal hypoechoic area in the central endometrium is probably related to m enses.
== END 2022-06-19 10:50 | disposition home or self-care (01) ==
PROVIDERS: PCP Family Medicine; Visit Provider Family Medicine
DX: R10.2 Pelvic and perineal pain (principal)
CPT/HCPCS: 76830; 76856

== ENCOUNTER → 2022-06-26 11:55 | Outpatient (BNVA) | payer OTHER, SELFPAY | PROVIDERS: PCP Family Medicine; Visit Provider Family Medicine | DX: Z51.81 Encounter for therapeutic drug level monitoring (principal); Z13.220 Encounter for screening for lipoid disorders; N92.6 Irregular menstruation, unspecified; Z00.00 Encounter for general adult medical examination without abnormal findings; Z34.90 Encounter for supervision of normal pregnancy, unspecified, unspecified trimester | CPT/HCPCS: 80053; 80061; 84443; 85025 ==

== ENCOUNTER → 2023-01-01 11:18 | Outpatient (BNVA) | payer OTHER, SELFPAY | PROVIDERS: PCP Family Medicine; Visit Provider Family Medicine | DX: Z34.90 Encounter for supervision of normal pregnancy, unspecified, unspecified trimester (principal); R30.0 Dysuria | CPT/HCPCS: 80307; 81000; 81025; 84144; 84443; 84702; 85025; 86592; 86762; 86803; 86850; 86900; 87086; 87340; 87491; 87591; 87624; 87806 ==

== ENCOUNTER 2023-01-13 14:31 | Outpatient (CLI) | payer OTHER, SELFPAY ==
--- NOTE | 2023-01-13 14:45 | US_ITS ---
WS: [id number] EARLY OBSTETRICAL ULTRASOUND (<14 WEEKS). HISTORY: Dating US in next 1-2 weeks COMPARISON: None available. Single intrauterine gestational sac is identified. Cardiac activity at 171 BPM. [place]-rump length ophelia sures 2.3 cm which corresponds to a gestation of 8w6d. Normal-appearing yolk sac and amnion demonstra belkis. No subchorionic hemorrhage. No free fluid. Prior RIGHT oophorectomy. Negative LEFT ovary IMPRESSION: 1. Single intrauterine gestation of 8 weeks 4 days with an EDC of 08/21/2023. 2. Normal cardiac activity.
== END 2023-01-13 14:32 | disposition home or self-care (01) ==
PROVIDERS: PCP Family Medicine; Visit Provider Family Medicine
DX: Z34.81 Encounter for supervision of other normal pregnancy, first trimester (principal)
CPT/HCPCS: 76801

== ENCOUNTER → 2023-02-03 15:33 | Outpatient (BNVA) | payer SELFPAY | PROVIDERS: PCP Family Medicine; Visit Provider Family Medicine | DX: R30.0 Dysuria (principal) | CPT/HCPCS: 87086 ==

== ENCOUNTER 2023-03-31 11:57 | Outpatient (CLI) | payer OTHER, SELFPAY ==
--- NOTE | 2023-03-31 12:00 | USR_ITS ---
PROCEDURE INFORMATION: Exam: US , Limited Exam date and time: 03/31/2023 12:29 PM Age: 33 years old Clinical indication: Screening exam; Routine US, uterus; Additional info: Anatomy US - schedule for 9-10 weeks from now TECHNIQUE: Imaging protocol: Real-time ultrasound of the maternal uterus with image documentation. Exam focused on the clinical indication. COMPARISON: US OB <= 14 weeks fetus [id number] 01/13/2023 3:11 PM FINDINGS: Gestation: Single live intrauterine gestation. Placenta: Anterior. Amniotic fluid: Adequate amount of amniotic fluid. Amniotic fluid index: 12.27 cm. ANATOMY: midline falx: Normal cerebellum: Normal lateral ventricles: Normal cisterna magna: Normal choroid plexus: Normal upper lip and nose: Normal heart four-chamber view, heart size and position: Normal right ventricular outflow tract: Normal left ventricular outflow tract: Normal kidneys: Normal stomach: Normal urinary bladder: Normal spine: Not clearly visualized Umbilical cord insertion site into the abdomen: Normal Umbilical cord vessel number: Normal 3 vessel cord extremities: Normal. Normal external genitalia: Normal BIOMETRY: Gestational age (AUA): 19 weeks 4 days Estimated due date (AUA): 08/21/2023 Estimated weight: 309 g or 0 lb 11 oz Biparietal diameter (BPD): 4.42 cm Head circumference (HC): 16.70 cm Abdominal circumference (AC): 14.99 cm Femur length (FL): 2.99 cm US/US OB >= 14 weeks fetus [id number] IMPRESSION: Single live intrauterine gestation with estimated age of 19 weeks 4 days and weight of 309 g or 0 lb 11 oz.
== END 2023-03-31 11:58 | disposition home or self-care (01) ==
LOC: RAD 11:59
PROVIDERS: PCP Family Medicine; Visit Provider Family Medicine
DX: Z34.80 Encounter for supervision of other normal pregnancy, unspecified trimester (principal)
CPT/HCPCS: 76805

== ENCOUNTER → 2023-04-30 11:32 | Outpatient (BNVA) | payer SELFPAY | PROVIDERS: PCP Family Medicine; Visit Provider Family Medicine | DX: Z34.82 Encounter for supervision of other normal pregnancy, second trimester (principal) | CPT/HCPCS: 82950 ==

== ENCOUNTER 2023-05-29 09:42 | Outpatient (CLI) | payer SELFPAY ==
[2023-05-29] VITALS (29 sets, daily range): BP systolic 114; BP diastolic 70; PULSE 75–106; O2SAT 90–100; BMI 31.0
--- NOTE | 2023-05-29 10:09 | US_ITS ---
WS: [id number] BIOPHYSICAL PROFILE AMNIOTIC FLUID HISTORY: vaginal bleeding COMPARISON: 03/31/2023 position: Vertex. Cardiac activity: 144 bpm. Cervix: 4.9 Placenta: Anterior, no previa or abruption. Placenta grade: 2 Parameters are as follows: Breathin Movement: 2 Tone: 2 Fluid volume: 2 Amniotic Fluid Index: 15.4 cm IMPRESSION: 1. Biophysical profile score: 8/8. 2. Normal amniotic fluid.
--- NOTE | 2023-05-29 10:56 | PM.TDS ---
Transfer Summary Providers Date of Admission: 05/29/2023 Date of Discharge/Transfer: 05/29/23 Attending Provider at Admission: Yang Amador MD Attending Provider at Transfer: Yang Amador MD Primary Care Provider: Yang Amador MD Transfer Plans: Anticipated date of transfer: 05/29/23. Diagnoses at Discharge Discharge Diagnosis (1) Intrauterine : Status: Acute (2) Placental abruption: Status: Acute Reason for Visit Reason for Visit vaginal bleeding Brief History: Joleen Smith is a 33 year old at 28.0 weeks by 8 wk US inconsistent with LMP.? Her is complicated by prior oophorectomy for dermoid cyst, GBS bacteruria in 1st TM and now with signs of placental abruption clinically. The patient previously had an uncomplicated other than the above. She woke up at approximately 8 AM on 05/29/2023 and noted vaginal bleeding. It covered her pad and then started to slow down, but then started trickling again. For this reason she presented to labor and delivery triage at [facility] in [facility]. The patient denies any recent falls or trauma. Last intercourse was about a week ago. Upon exam the patient has blood coming from the cervix and a moderate amount of blood in the vaginal vault that is bright red in nature. The cervix is visually closed. On ultrasound there are no signs of abruption collecting under the placenta. heart tones have been in the mid 140s with moderate variability and good accelerations with a category 1 tracing with the exception of a 5-minute deceleration into the 90s with a return back to baseline with a good tracing. The patient is having uterine irritability every 5 minutes. She is not feeling the contractions. Ultrasound showed a biophysical profile of 8 out of 8 with an SMITHA of 15. No bleeding underneath the placenta was noted on ultrasound. The patient received her first dose of steroids at approximately 11 AM on 05/29/2023 prior to transfer in case delivery as needed. I spoke with Dr. Jaime Miles and he agreed to accept the patient in transfer. We appreciate their care at [facility]. Physical Exam Narrative: General: Alert and oriented x 3. In no acute distress. Heart: Regular rate and rhythm. No murmurs. Lungs: Clear to auscultation bilaterally. No wheezes, crackles or ronchi. Abdomen: Soft, non-tender. Gravid uterus consistent with gestational age. : Moderate amounts of pooling blood noted in the vaginal vault that is bright red in nature. Cervix is visualized and blood is noted coming from the cervix. Cervix is visually closed. Extremities: No pitting edema. TS Data Studies Completed and Pending Pending at discharge Category Date Time Status US OB BPP wo NST [id number] Routine Ultrasound 05/29/23 10:09 Ordered Recent Clincial Data Last Vital Signs Pulse 94 05/29/23 10:41 BP 114/70 05/29/23 09:59 Pulse Ox 99 05/29/23 10:41 Vital Signs Pulse BP Pulse Ox 05/29/23 10:41 94 05/29/23 10:41 99 05/29/23 10:36 90 05/29/23 10:36 98 05/29/23 10:31 89 05/29/23 10:31 100 05/29/23 10:26 90 05/29/23 10:26 100 05/29/23 10:21 97 05/29/23 10:21 100 05/29/23 10:16 103 H 05/29/23 10:16 98 05/29/23 09:59 106 H 114/70 Intake & Output/Weight 05/27/23 05/28/23 05/29/23 05/30/23 06:59 06:59 06:59 06:59 Weight 181 lb Vitals Last Vital Signs Pulse 94 05/29/23 10:41 BP 114/70 05/29/23 09:59 Pulse Ox 99 05/29/23 10:41 TS Medications Medications Betamethasone Acet/Betameth SodPhos (Betamethasone Susp 6 Mg/Ml 1 Ml (Per Ml)) 12 mg IM ONCE GLENIS Allergies No Known Allergies Allergy (Verified 06/07/19 10:36) Home Medications vit no.133-ferrous fumarate 28 mg-folic acid 800 mcg tablet () 1 tab PO DAILY 06/07/19 [History Confirmed 05/29/23] Discharge Plan Discharge Patient Disposition: Xfer Other Prescriptions: No Action 28-800 mg-mcg Tablet 1 tab PO DAILY Transfer Attestations Time Spent in Transfer Care: critical care time Critical Care Time (min): 50 Quality Metrics Clinical Quality Measures [ No reported AMI, CVA or VTE this stay] Coding Level of Care Code Acute Code for Chg Fwd Diagnoses Intrauterine Z34.90 Placental abruption O45.90
[2023-05-29] MEDS: betamethasone susp 6 mg/mL 1 mL (per mL) 12 MG IM (12:08)
--- NOTE | 2023-05-29 12:28 | PC.NURSE ---
patient presented with complaint of vaginal bleeding, Dr. Amador was notified verbally by this RN as he was on the floor. Orders for Betamethazone 12 mg IM once given, BBP with placental location and sterile vaginal exam given by MD. After vaginal exam and BPP MD discussed with patient the situation and his recommendation to transfer to a higher level of care. [facility] ambulance service notified.
--- NOTE | 2023-05-29 12:52 | PC.NURSE ---
report called to Alex Peraza RN at [facility] Labor and delivery
--- NOTE | 2023-05-29 13:01 | PC.NURSE ---
Patient transferred to [facility] ambulance service for transport to [facility] labor and delivery
== END 2023-05-29 13:00 | disposition other institution (70) ==
LOC: OPOB 09:49 → OBGYN 10:57
PROVIDERS: PCP Family Medicine; Visit Provider Family Medicine
DX: O45.93 Premature separation of placenta, unspecified, third trimester (principal); Z3A.28 28 weeks gestation of pregnancy
CPT/HCPCS: 59025; 76819; 95861; 96372; 99211; J0702

== ENCOUNTER → 2023-12-24 09:55 | Outpatient (BNVA) | payer OTHER, SELFPAY | PROVIDERS: PCP Family Medicine; Visit Provider Family Medicine | DX: Z00.00 Encounter for general adult medical examination without abnormal findings (principal) | CPT/HCPCS: 87624 ==

== ENCOUNTER 2024-03-02 16:13 | Outpatient (CLI) | payer OTHER, SELFPAY ==
--- NOTE | 2024-03-02 16:16 | XR_ITS ---
WS: [id number] Exam: XR hip RT 2-3V wo/w pel* [id number] Date/Time of Exam: 03/02/2024 4:26 PM Reason For Exam: Right hip pain 5 mm lucent focus noted in the femoral neck. Osteoid osteoma can have this appearance. The remainder of the RIGHT hip is negative. The joint is preserved. Normal soft tissues. XR/XR hip RT 2-3V wo/w pel* [id number] IMPRESSION: 1. 5 mm lucency in the femoral neck. Osteoid osteoma could have this appearance . The RIGHT hip is otherwise negative.
== END 2024-03-02 16:14 | disposition home or self-care (01) ==
LOC: RAD 16:14
PROVIDERS: PCP Family Medicine; Visit Provider Family Medicine
DX: M25.551 Pain in right hip (principal); R93.7 Abnormal findings on diagnostic imaging of other parts of musculoskeletal system
CPT/HCPCS: 73502

== ENCOUNTER → 2024-07-19 15:17 | Outpatient (BNVA) | payer OTHER, SELFPAY | PROVIDERS: PCP Family Medicine; Visit Provider Family Medicine | DX: D64.9 Anemia, unspecified (principal); N92.6 Irregular menstruation, unspecified; Z51.81 Encounter for therapeutic drug level monitoring | CPT/HCPCS: 83550; 84439; 84443; 85025 ==

== ENCOUNTER → 2025-04-01 09:56 | Outpatient (BNVA) | payer OTHER, SELFPAY | PROVIDERS: PCP Family Medicine; Visit Provider Family Medicine | DX: Z00.00 Encounter for general adult medical examination without abnormal findings (principal); E03.9 Hypothyroidism, unspecified; D64.9 Anemia, unspecified; E55.9 Vitamin D deficiency, unspecified; R53.81 Other malaise; R53.83 Other fatigue; Z51.81 Encounter for therapeutic drug level monitoring | CPT/HCPCS: 80053; 82306; 83550; 84439; 84443; 85025 ==

== ENCOUNTER 2025-04-11 12:25 | Outpatient (CLI) | payer OTHER, SELFPAY ==
--- NOTE | 2025-04-11 12:31 | XR_ITS ---
WS: [id number] Right hip, AP and frog-leg views, 04/11/2025 Clinical Data: Right hip pain Comparison: Right hip, 03/02/2024 Findings: No fractures or dislocations are seen. The right hip shows no erosion, sclerosis, narrowing, cyst formation or fragmentation of the right femoral head. The soft tissues are not remarkable. The adjacent pelvis is normal. XR/XR hip RT 2-3V wo/w pel* [id number] Impression: Negative right hip.
== END 2025-04-11 12:26 | disposition home or self-care (01) ==
LOC: RAD 12:25
PROVIDERS: PCP Family Medicine; Visit Provider Family Medicine
DX: M25.551 Pain in right hip (principal)
CPT/HCPCS: 73502